=== PATIENT | male | born 1985 | race Caucasian/White ===

== ENCOUNTER 2018-04-06 21:44 | Inpatient (IN) | payer BC, OTHER ==
[~2018-04-06] VITALS: Ht 190.5 cm; Wt 83.9 kg
--- NOTE | 2018-04-06 23:15 | NUR ---
Intake Assessment Pt met in Intake Office at approximately 2015 hours on 04/06/18 to be admitted to [facility] for medically managed withdrawal from ETOH. Pt appears disheveled with uncombed hair, wearing baggy, unwashed clothing, dirty fingernails and dark circles under eyes. Pt stares into space often, and is preoccupied with phone. VS's obtained: T 96.9, BP150/76. HR 99, RR 16, SaO2 94% on RA. Pt reports drinking 750mls of ETOH(Vodka) per day for last 6 weeks, with last drink at 2100 this evening, denies all other substance use. Pt reports height as 75", and weight previously as 195lbs and believes he has gained an additional 25 lbs in past 1.5 months due to drinking. Pt reports anxiety, restlessness/agitation/irritability, hot and cold sweats, panic and night terrors as w/d symptoms experienced in past, no c/o at present. Pt denies any SI/HI, PMH or PPH, Sz Hx, w/d induced delirium or cardiac complications, and no O/D, lists allergy to PCN with adverse effects being swelling of extremities and face. Policies and procedures (rules) of unit explained, Pt verbalizes understanding.
[2018-04-06 23:23] VITALS: BP 150/76
[2018-04-06] MEDS ORDERED: MAGNESIUM HYDROXIDE 30 ML LIQUID UDC PO PRN (23:30)
[2018-04-06] MEDS ORDERED: MAG HYDROX/AL HYDROX/SIMETH 30 ML LIQUID UDC PO PRN (23:30)
[2018-04-06] MEDS ORDERED: THIAMINE HCL 200 MG/2 ML VIAL IM ONE (23:30)
[2018-04-06] MEDS ORDERED: HYDROXYZINE PAMOATE 25 MG CAPSULE PO PRN (23:30)
[2018-04-06] MEDS ORDERED: MIRALAX 17 GM POWD.PACK PO PRN (23:30)
[2018-04-06] MEDS ORDERED: ONDANSETRON ODT 4 MG TAB.RAPDIS SL PRN (23:30)
[2018-04-06] MEDS ORDERED: LOPERAMIDE HCL 2 MG CAPSULE PO PRN ×2 (23:30)
[2018-04-06] MEDS ORDERED: LORAZEPAM 2 MG/1 ML VIAL IM PRN (23:30)
[2018-04-06] MEDS ORDERED: CLONIDINE HCL 0.1 MG TABLET PO PRN (23:30)
[2018-04-06] MEDS ORDERED: ONDANSETRON 4 MG/2 ML VIAL IM PRN (23:30)
[2018-04-06] MEDS ORDERED: DICYCLOMINE HCL 20 MG TABLET PO PRN (23:30)
[2018-04-06] MEDS ORDERED: LORAZEPAM 1 MG TABLET PO PRN ×2 (23:30)
[2018-04-06 23:38] LABS: BASOPHILS % (AUTO) 0.3 % (0.0-2.0); EOSINOPHILS % (AUTO) 0.6 % (0.0-7.0); HEMATOCRIT 45.3 % (36.7-47.1); HEMOGLOBIN 15.6 g/dL (12.5-16.3); LYMPHOCYTES # (AUTO) 1.5 K/uL (20.0-40.0); LYMPHOCYTES % (AUTO) 35.3 % (20.5-51.5); MEAN CORPUSCULAR HGB CONC 34 g/dL (32.5-36.3); MEAN CORPUSCULAR VOLUME 90.1 fL (73.0-96.2); MONOCYTES # (AUTO) 0.3 K/uL (2.0-10.0); MONOCYTES % (AUTO) 6.8 % (0.0-11.0); NEUTROPHILS # (AUTO) 2.4 K/uL (1.8-8.9); PLATELET COUNT (AUTO) 266 K/uL (152-348); RED BLOOD CELL COUNT(AUTO) 5.03 MIL/uL (4.06-5.63); WHITE BLOOD COUNT (AUTO) 4.2 K/uL (3.6-10.2)
[2018-04-07] VITALS: BP 114/73
[2018-04-07 00:37] LABS: BILIRUBIN,TOTAL 0.2 mg/dL (0.2-1.0); CREATININE 0.8 mg/dL (0.6-1.3); MAGNESIUM 1.9 mg/dL (1.8-2.4); POTASSIUM 3.9 mmol/L (3.5-5.1); TOTAL PROTEIN, SERUM 8.7 g/dL (6.4-8.2)
--- NOTE | 2018-04-07 01:00 | NUR ---
Admission Note: Pt received into [facility] on 04/06/18 at 2334 hours for medically managed withdrawal from ETOH. Skin check performed and skin found intact, no contraband noted. Pt shown unit, kitchen, showers, rec room, etc. and admission performed in pt room 314. Pt cooperative, depressed, anxious, denies w/d at present. Pt reports drinking 750mls of ETOH (Vodka) per day for last 6 weeks. Pt claims cycle of drinking for a month and being sober for a month for last 10 years. Last use of ETOH was approximately 2100 hours on 04/06/18 and 750mls consumed for day. Last time sober was February 15, and pt first used ETOH at age 17 around 2002. Pt appears disheveled, with uncombed hair, unshaven, dirty clothing, dark circles under eyes and dirty fingernails. Pt displays poor eye contact, staring into space for periods, worried, and preoccupied. Affect flat with racing thoughts. Pt reports some anxiety, agitation, restlessness, diaphoresis, and fatigue as current symptoms of w/d. Current VS's: BP 114/73, HR 88, RR 16, T 98.2, SaO2 94% on RA. Pt height remains at 6'3", but weight is 185 on scale. Allergies to PCN with adverse reaction being swelling of the extremities and face/neck, diet regular. Pt does not have an advance directive, does not wish one, and is an organ donor. Pt is oriented x 4. Substance Use: ETOH (Vodka) 750mls/day for last 6 weeks, alternating month long periods drinking for last 10 years. Pt reports longest period sober as 8 months, obtained in 2013 after his 1 prior attempt at sobriety at "[facility]" in [place], [place], where he participated in an IOP for 4 weeks. Family hx reveals both parents and only sibling (sister) all experience SA (ETOH). Pt lists his support as his former therapist. 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 When asked why pt drinks, pt responds "I enjoy it, I guess, It keeps me calm". Pt expresses great enjoyment from drinking, but when asked why he wants to get sober, pt states "I'm going to kill myself, I'm going to drink myself to the point where my body shuts down". Openly he recognized his barriers as his enjoyment, stating "I really enjoy it", and wanting to "be the life of the constitution party" and coenablers. Consequences experienced are 2 DUI's, his girlfriend (a nurse) currently kicking him out of the house if he doesn't get help, and gaining weight (Pt believed he had gained 25 lbs in past month and a half-actually has lost 10lbs). When asked how many times they've tried to get sober, pt responds "every single morning I wake up". Pt states the difference for this time is: "I've never had so much on the line" and "I'm going to be 33 in April". Rules of unit explained to pt, pt verbalized understanding , blood and U/A obtained. Full safety measures instituted and explained to pt (i.e. bed locked and in lowest position, siderails up and padded x 2, call naylor within reach and frequent rounding. Will continue to monitor pt for duration of shift, attending promptly to all s/sx's of withdrawal or distress, until morning endorsement.
[2018-04-07 01:32] LABS: THYROID STIMULATING HORMONE 3.035 mIU/mL (0.358-3.740)
--- NOTE | 2018-04-07 01:45 | NUR ---
PRN Med Ativan 1mg PO given for CIWA of 8, aeb fine tremors, diaphoresis, anxiety and agitation, insomnia. Will continue to monitor and reassess in 1 hour
--- NOTE | 2018-04-07 02:45 | NUR ---
PRN Reassessment Ativan 1mg PO given for CIWA of 8 1 hour prior. At present pt is sleeping, RR 14, even and nonlabored. Med effective.
[2018-04-07 04:00] VITALS: BP 107/60
--- NOTE | 2018-04-07 04:00 | NUR ---
0400 Rounds VS's obtained and stable, CIWA deferred r/t pt somnalance. Will continue to monitor and promptly attend to all s/sx's of w/d or distress.
[2018-04-07 04:17] LABS: *AMPHETAMINE, URINE NEGATIVE (NEGATIVE); *BARBITURATE, URINE NEGATIVE (NEGATIVE); *CANNABINOID, URINE NEGATIVE (NEGATIVE); *COCCAINE, URINE NEGATIVE (NEGATIVE); *OPIATE, URINE NEGATIVE (NEGATIVE); *PHENCYCLIDINE SCREEN,URINE NEGATIVE (NEGATIVE)
--- NOTE | 2018-04-07 07:45 | NUR ---
START OF SHIFT Pt is a 32 y/o M admitted yesterday 04/06/18 for medically supervised ETOH withdrawal. Upon entering room, pt is A/Ox4, laying in bed, has good eye contact, has a disheveled appearance. Pt has facial flushing, presents anxiety, restlessness, diaphoresis, fatigue, appears dyshoric, anhedonic, and tremors felt. Last CIWA 8. Encouraged pt to increase fluids as tolerated, educated pt on s/s to report; pt verbalized understanding. Bed is on the lowest position with side rails x2 up and call light within reach. Safety measures in place. Will give endorsement to load dropper nurse.
[2018-04-07 08:00] VITALS: BP 135/71
--- NOTE | 2018-04-07 08:10 | NUR ---
End of Shift Endorsement given to day nurse. Pt admitted to unit on 04/06/18 at 2334 hours for medically managed withdrawal from ETOH (750mls Vodka/day). Pt list as a full code on a regular diet with allergy to PCN. Pt currently on PRN Ativan for w/d symptoms. Pt CIWA score for shift 8, for which Ativan 1mg Po given, and assessed effective. Pt wit flat affect and racing thoughts, disheveled and uncombed hair and dirty fingernails, and at times unable to articulate feelings or identify symptoms. Pt admitted and slept for 6 hours with 1100 intake, and 1 void. Labs and U/A obtained prior to Ativan. Full safety (fall and seizure) precautions in place with padded siderails x 2 and frequent rounding.
--- NOTE | 2018-04-07 08:30 | NUR ---
[facility] ASSESSMENT 10 Received pt A/Ox4, respirations even and unlabored, laying in bed watching tv. Pt has good eye contact, has a disheveled appearance, depressive mood, hypoactive. Pt has facial flushing, presents anxiety, restlessness, diaphoresis, fatigue. Pt is dysphoric, anhedonic, and tremors are felt. Pt reports he is starting to have hot flashes. Refused prn meds at this time. Educated pt to use deep breathing exercises to promote relaxation. Will continue to monitor.
[2018-04-07] MEDS ORDERED: TUBERCULIN,PURIF.PROT.DERIV. 5 TU/0.1 ML TEST ID ONE (09:00)
[2018-04-07] MEDS: FOLIC ACID 1 MG TABLET PO SCH (09:08)
[2018-04-07] MEDS: MULTIVITAMINS,THERAPEUTIC TABLET PO SCH (09:08)
[2018-04-07] MEDS: THIAMINE HCL 100 MG TABLET PO SCH (09:09)
[2018-04-07 12:00] VITALS: BP 130/72
--- NOTE | 2018-04-07 12:00 | NUR ---
[facility] ASSESSMENT 13 Pt has been isolative in room, watching tv, reports being restless, fidgety. Pt has facial flushing, headache, presents increased anxiety and agitation, restlessness, diaphoresis, fatigue. Pt is dysphoric, anhedonic, and tremors are felt. Pt reports he is starting to have hot flashes. has ordered a 5 day ativan taper to start 1330. Will administer tylenol prn. Encouraged pt to attend groups and activities to promote coping skills and to use a diversion. Will continue to monitor.
[2018-04-07] MEDS ORDERED: 5 DAY TAPER OF LORAZEPAM -SERENITY PROTOCOL PO PRN (13:00)
[2018-04-07] MEDS: ACETAMINOPHEN 325 MG TABLET PO PRN (13:27)
--- NOTE | 2018-04-07 13:27 | NUR ---
PRN Tylenol 650 mg po, Maalox 30mg po prn given for indigestion, heartburn, headache. Will monitor and reassess.
[2018-04-07] MEDS: LORAZEPAM 1 MG TABLET PO SCH ×3 (13:56→20:36)
--- NOTE | 2018-04-07 14:27 | NUR ---
REASSESSMENT Pt reported med as effective for headache; pt is resting in room watching tv. Will continue to monitor and reassess. Addendum: 04/07/18 at 1428 by DEBBIE KAMINSKI RN Pt report Maalox as effective for indigestion, heartburn.
--- NOTE | 2018-04-07 16:00 | NUR ---
CIWA ASSESSMENT 15 Pt has increased restlessness, c/o heartburn, stomach indigestion, facial flushing, hot flashes, headache, presents increased anxiety and agitation, diaphoresis, fatigue, dysphoric, anhedonic, and tremors are felt. Ativan scheduled med to be given. Tylenol and maalox prn was given. Encouraged pt to use non-pharmalogical method. Will continue to monitor.
[2018-04-07 16:30] VITALS: BP 122/82
--- NOTE | 2018-04-07 18:57 | NUR ---
END OF SHIFT A 5 day Ativan taper has been ordered for pt that started today @1330. Pt asks questions regarding plan of care, med regimen, is involved in his care and is compliant. Pt has been given maalox and tylenol prns during shift and was effective. Last CIWA 15 @1600. Pt ate 75% of meals. Fluid intake of 1500 ml, voided x4, bm x1. Safety measures in place. Will give endorsement to maintenance supervisor 2nd shift nurse.
--- NOTE | 2018-04-07 19:30 | NUR ---
Start of Shift Endorsement given to day nurse. Pt admitted to unit on 04/06/18 at 2334 hours for medically managed withdrawal from ETOH (750mls Vodka/day). Pt list as a full code on a regular diet with allergy to PCN. 5 day Ativan taper started 04/07/18 on day shift. Pt appears depressed and sad, affect is flat with poor eye contact and racing thoughts. Pt remains disheveled with uncombed hair, unshaven and unwashed clothing and dirty fingernails. Oriented x 4. Pt reports "micro naps" during day, w/d s/sx's 11/16 at present . Will continue to monitor for shift, endorsing in am, and attending to all s/sx's w/d or distress promptly.
[2018-04-07 20:00] VITALS: BP 142/89
--- NOTE | 2018-04-07 20:00 | NUR ---
1999 Rounds VS's obtained, stable. CIWA 15, AEB hot and cold sweats, hand tremors, anxiety and agitation, insomnia, SBP (142), anhedonia, depression, difficulty concentrating, and fatigue/malaise.
[2018-04-07] MEDS: diphenhydrAMINE 50 MG CAPSULE PO PRN (20:35)
--- NOTE | 2018-04-07 20:35 | NUR ---
PRN Meds Benedryl 50mg PO for insomnia and Clonidine 0.1mg PO for anxiety, diaphoresis given. Will continue to monitor and reassess in 1 hour
--- NOTE | 2018-04-07 21:35 | NUR ---
PRN Reassessment Benedryl 50mg PO for insomnia and Clonidine 0.1mg PO for anxiety, diaphoresis given 1 hour prior. At present pt is sleeping, RR 14, even and nonlabored. Meds effective.
[2018-04-08] VITALS: BP 117/73
--- NOTE | 2018-04-08 | NUR ---
Midnight Rounds VS's obtained, stable. CIWA deferred r/t pt somnalance. Will continue to monitor, promptly attending to all s/sx's w/d or distress.
[2018-04-08 04:00] VITALS: BP 114/68
--- NOTE | 2018-04-08 04:00 | NUR ---
0400 Rounds VS's obtained and stable. CIWA deferred r/t pt somnalance. Will continue to monitor, promptly attending to all s/sx's w/d or distress.
[2018-04-08 04:05] LABS: HEPATITIS B SURFACE AG Negative (Negative)
--- NOTE | 2018-04-08 07:31 | NUR ---
End of Shift Endorsement given to day nurse. Pt admitted to unit on 04/06/18 for medically managed withdrawal from ETOH (750mls Vodka/day). Pt listed as a full code on a regular diet with allergy to PCN. 5 day Ativan taper started 04/07/18. Pt depressed/worried over outside issues (i.e. work, home, girlfriend) with flat affect, poor eye contact, sometimes staring into space with racing, loose thoughts. W/d s/sx's experienced include tremors, anxiety and restlessness, diaphoresis, depression, difficulty concentrating, dyspepsia, fatigue, H/A, and increased startle response. Last CIWA was 15 with pt sleeping 9 hours, intake was 1296 mls, with 6 voids and 1 BM. There were no PRN's.
--- NOTE | 2018-04-08 07:45 | NUR ---
START OF SHIFT Pt is a 32 y/o M admitted on 04/06/18 for medically supervised ETOH withdrawal. Pt has been placed on a 5 day Ativan taper, today is the second day. Pt is tolerating well. Upon entering room, pt is A/Ox4, appears flushed, sitting in bed w/ HOB elevated watching tv, has a disheveled appearance and a depressive mood. Pt has a headache, nausea, anxiety, restlessness, diaphoresis, hot flashes, fatigue, dyshoric, anhedonic, and tremors noted. Pt reports feeling very restless. Last CIWA 15. Encouraged pt to increase fluids as tolerated, educated pt on today's plan of care, med regimen, and s/s to report; pt verbalized understanding. Bed is on the lowest position with side rails x2 up and call light within reach. Safety measures in place. Will give endorsement to shift supervisor film processing nurse.
[2018-04-08 08:00] VITALS: BP 119/72
--- NOTE | 2018-04-08 08:00 | NUR ---
[facility] Received pt A/Ox4, appears flushed upon assessment, sitting in bed w/HOB elevated watching tv, has a disheveled appearance and a depressive mood. Pt reports feeling very restless, contantly wanting to get up and go do something. Pt C/O headache, nausea, anxiety, restlessness, diaphoresis, hot flashes, fatigue, dyshoria, anhedonia, and tremors noted. Scheduled taper meds to be given and tylenol prn will be given. Addendum: 04/08/18 at 1018 by DEBBIE KAMINSKI RN [facility]
[2018-04-08] MEDS: LORAZEPAM 1 MG TABLET PO SCH ×3 (08:58→21:33)
[2018-04-08] MEDS: FOLIC ACID 1 MG TABLET PO SCH (08:58)
[2018-04-08] MEDS: MULTIVITAMINS,THERAPEUTIC TABLET PO SCH (08:58)
[2018-04-08] MEDS: THIAMINE HCL 100 MG TABLET PO SCH (08:58)
[2018-04-08] MEDS: ACETAMINOPHEN 325 MG TABLET PO PRN (09:06)
--- NOTE | 2018-04-08 09:06 | NUR ---
PRN Tylenol 650 mg po PRN given for headache 5/10 pain. Will monitor and reassess.
--- NOTE | 2018-04-08 10:06 | NUR ---
REASSESSMENT Pt reports tylenol has been effective in decreasing the intensity of his headache to 3/10. Will continue to monitor.
--- NOTE | 2018-04-08 10:40 | NUR ---
Client prompted to attend groups twice daily and to let therapist know if he needs to talk.
[2018-04-08 12:20] VITALS: BP 146/88
--- NOTE | 2018-04-08 12:30 | NUR ---
[facility] ASSESSMENT 16 Pt appears flushes, anxious, agitated, has poor eye contact, just came out of group. Pt C/O nausea, anxiety, restlessness, diaphoresis, intermittent hot flashes, fatigue, headache, dyshoria, anhedonia, and tremors noted. Scheduled taper meds to be given and refuses PRN meds at this time.
[2018-04-08 16:00] VITALS: BP 129/89
--- NOTE | 2018-04-08 17:14 | NUR ---
CIWA ASSESSMENT 16 Pt presents flushing, agitation, restlessness, frequent movements, diaphoresis, headache, sensitivity to the light, dyshoria, anhedonia, and tremors noted. Refuses PRN meds at this time. Addendum: 04/08/18 at 1717 by DEBBIE KAMINSKI RN Correct CIWA 11. Addendum: 04/08/18 at 1718 by DEBBIE KAMINSKI RN Correct CIWA assessment is 14.
--- NOTE | 2018-04-08 18:33 | NUR ---
END OF SHIFT Pt continues on a 5 day ativan taper; today the second day, tolerating well. Pt tend to deny most symptoms however pt appears anxious and agitated, has less eye contact than yesterday, restless, has facial flushing and tremors, c/o headache and light sensitivity. Pt has been seeking activities throughout the day to occupy his time. Last CIWA 14. Pt has been given tylenol PRN in the am. Safety measures in place.
--- NOTE | 2018-04-08 19:15 | NUR ---
Start of Shift Note: Patient is a 32 y.o male admitted on 04/06/18 for medically supervised withdrawal from ETOH use. Patient is alert & oriented x4. He presented with a flushed face, worried affect and anxious and depressed mood. He also presented with symptoms of withdrawals such as, fine tremors, sweating and mild headache. Patient continues on his Ativan taper and tolerating well. last CIWA is 14. Pt received PRN Tylenold during day shift and was effective per report. Continue to encourage pt to increase fluid intake for hydration. Pt educated of current plan of care for the night and medication regimen. Pt verbalized understanding. Safety measures in place. Will continue to monitor patient.
[2018-04-08 20:00] VITALS: BP 129/89
[2018-04-08] MEDS: IBUPROFEN 600 MG TABLET PO PRN (21:33)
--- NOTE | 2018-04-08 21:33 | NUR ---
PRN Motrin Patient appears restless and complains of mild headache. Non-pharmacological intervention provided but not effective. PRN Motrin administered as ordered. Safety measures in place. Will monitor for effectiveness of medication.
--- NOTE | 2018-04-08 22:33 | NUR ---
PRN Reassessment Patient verbalized relief from headache after medication administration. Pt in bed and appears comfortable. Safety measures in place. Will continue to monitor patient.
[2018-04-08] MEDS: diphenhydrAMINE 50 MG CAPSULE PO PRN (22:42)
--- NOTE | 2018-04-08 22:42 | NUR ---
PRN Benadryl Patient complains of unable to fall asleep. PRN Benadryl adminstered as ordered. Will monitor for effectiveness of medication.
--- NOTE | 2018-04-08 23:42 | NUR ---
PRN Reassessment Patient asleep in bed and appears comfortable. No facial grimacing noted. Respiration even & unlabored. Safety measures in place. Will continue to monitor patient.
--- NOTE | 2018-04-09 04:00 | NUR ---
Vitals/CIWA deferred Patient asleep in bed and appears comfortable. No facial grimacing noted. Respiration even & unlabored. Unable to assess CIWA at this time and will reassess pt if awake. Safety measures in place. will continue to monitor patient.
--- NOTE | 2018-04-09 07:29 | NUR ---
End of Shift Note: Continue to closely monitor patient. Patient remains alert & oriented x4. He presented with fine tremors, sweating, headache, anxiety & agitation. He continues to received his Ativan taper and tolerating well. Last CIWA is 12. He received PRN Motrin for headache and Benadryl for sleep and were effective. Pt remained stable and vitals noted WNL. Pt was able to sleep for a total of 6 hours. He Voided 2x with no bowel movement. All need were attended & met. Safety measures in place. Will discuss all pertinent information to incoming nurse.
--- NOTE | 2018-04-09 07:45 | NUR ---
START OF SHIFT Pt is a 32 y/o M admitted on 04/06/18 for medically supervised ETOH withdrawal. Today will be the third day of a 5 day Ativan taper and pt is tolerating well. Received pt is A/Ox4, sitting in bed w/ HOB elevated watching tv, has a disheveled appearance, has a anxious and depressive mood. Pt C/O headache, sweating, sensitivity to the light, pt presents flushing, anxiety, agitation, restlessness, hot flashes, fatigue, dysphoric, anhedonic, and tremors noted. Last CIWA 12 @1999. Encouraged pt to increase fluids as tolerated, educated pt on today's plan of care, med regimen, and s/s to report; pt verbalized understanding. Bed is on the lowest position with side rails x2 up and call light within reach. Safety measures in place. Will continue to monitor.
--- NOTE | 2018-04-09 08:00 | NUR ---
[facility] ASSESSMENT 14 Received pt is A/Ox4, sitting in bed w/ HOB elevated watching tv with a flat affect, has a disheveled appearance, and an anxious and depressive mood. Pt C/O headache, sweating, sensitivity to the light, pt presents flushing, anxiety, agitation, restlessness, hot flashes, fatigue, dysphoric, anhedonic, and tremors noted. scheduled meds and tylenol prn to be given.
[2018-04-09 08:01] VITALS: BP 128/85
[2018-04-09] MEDS: FOLIC ACID 1 MG TABLET PO SCH (09:03)
[2018-04-09] MEDS: MULTIVITAMINS,THERAPEUTIC TABLET PO SCH (09:03)
[2018-04-09] MEDS: LORAZEPAM 1 MG TABLET PO SCH ×4 (09:03→21:00)
[2018-04-09] MEDS: THIAMINE HCL 100 MG TABLET PO SCH (09:03)
[2018-04-09] MEDS: ACETAMINOPHEN 325 MG TABLET PO PRN ×2 (09:03→18:01)
--- NOTE | 2018-04-09 09:03 | NUR ---
PRN Tylenol 650 mg po prn given for headache 5/10 pain. WIll monitor and reassess.
--- NOTE | 2018-04-09 10:03 | NUR ---
REASSESSMENT Pt reports tylenol as partially effective; however decreased the intensity of headache and is now tolerable. Will continue to monitor.
[2018-04-09 12:00] VITALS: BP 148/88
--- NOTE | 2018-04-09 12:00 | NUR ---
[facility] ASSESSMENT 17 Pt has increased anxiety, agitation, restlessness, dysphoria, anhedon continues to have facial flushing, flat affect, a disheveled appearance, and an anxious and depressive mood. Pt C/O headache /10, sweating, sensitivity to the light, dysphoric, anhedonic, and tremors noted. Scheduled Ativan, Vistaril, and Ibuprofen prns to be given. Pt states he wants to take a long nap after meds.
--- NOTE | 2018-04-09 13:23 | NUR ---
Client was prompted to attend twice daily group therapy sessions.
[2018-04-09] MEDS: IBUPROFEN 600 MG TABLET PO PRN (13:32)
--- NOTE | 2018-04-09 13:32 | NUR ---
PRN Ibuprofen 600 mg and vistaril 25 mg po prn given for anxiety and headache. Will monitor and reassess.
--- NOTE | 2018-04-09 14:32 | NUR ---
REASSESSMENT Pt reports that he still has a headache and is slightly decreased from before. Pt is less anxious. WIll continue to monitor.
--- NOTE | 2018-04-09 16:10 | NUR ---
CIWA ASSESSMENT 15 Pt continues to have facial flushing, flat affect, a disheveled appearance, and an anxious and depressive mood, anxiety, agitation, restlessness, dysphoria, anhedonia and tremors. Pt C/O headache 03/18, sweating, sensitivity to the light. Scheduled Ativan to be given.
[2018-04-09 16:30] VITALS: BP 130/88
--- NOTE | 2018-04-09 18:01 | NUR ---
PRN Tylenol 650 mg po prn given for headache 7/10 pain. Will monitor and reassess.
--- NOTE | 2018-04-09 19:20 | NUR ---
END OF SHIFT Pt has been attending and participating in groups. Pt continues to having flushing, headaches, restlessness, anxiety, agitation. Pt has been given tylenol x2, ibuprofen, vistaril PRNs. Pt states tried to take a nap and could not go to sleep. Pt is worried he will have a hard time falling asleep tonight. Last CIWA 15 @1600. Safety measures in place.
--- NOTE | 2018-04-09 19:21 | NUR ---
Start of shift note Received report from day shift nurse. Pt is a 32 yo male, A+Ox4, presenting to [facility] for ETOH. Pt noted with fatigue, agitation, and anxiety. Pt has no medical HX to report. Pt is on 5 day Ativan taper, tolerated well. Respirations even and unlabored. Will continue to monitor.
[2018-04-09 20:45] VITALS: BP 119/82
--- NOTE | 2018-04-09 20:45 | NUR ---
CIWA Assessment CIWA: 12. Pt noted with fine tremors, sweat, anxiety, agitation, and mild headache. Respirations even and unlabored. Will continue to monitor.
--- NOTE | 2018-04-09 21:59 | NUR ---
Ativan Dose Held 2100 dose of Ativan 1mg held for sleep. Respirations even and unlabored. Will continue to monitor.
--- NOTE | 2018-04-10 00:57 | NUR ---
V/S refused and CIWA deferred for sleep. Respirations even and unlabored. Will continue to monitor.
--- NOTE | 2018-04-10 04:32 | NUR ---
V/S refused and CIWA deferred for sleep. Respirations even and unlabored. Will continue to monitor.
--- NOTE | 2018-04-10 07:00 | NUR ---
End of shift note Pt was continuously noted with fatigue, agitation, and anxiety. Pt remained in room for entire shift. Pt remained cooperative and compliant with all aspects of treatment. Pt was not given any PRN medications during shift. Pts 2100 medications were held for sleep. Pt is on 5 day Ativan taper, tolerated well. Pt slept for a total of 11 HRS. Last CIWA: 12 @2000. Respirations even and unlabored. Will endorse to day shift nurse.
--- NOTE | 2018-04-10 07:10 | NUR ---
Start of Shift Pt. is a 32 y/o male admitted for the medically managed withdrawal from ETOH. Pt. was placed on a 5 day Ativan taper to manage withdrawal symptoms. Endorse from previous shift pt. presented with fatigue, agitation, and anxiety. No PRNs given during previous shift. Endorse pt. is cooperative with treatment but is isolative. Received pt. in room. Pt. is in bed with eyes closed, no signs of SOB or acute distress noted. Pt.s room is cluttered with personal belongings and food containers. Last CIWA 12 at 1999. Safety measures in place will continue to monitor pt.s behavior for safety.
[2018-04-10 08:00] VITALS: BP 126/77
--- NOTE | 2018-04-10 08:00 | NUR ---
CIWA Assessment CIWA 10. Pt. presents with fine tremors, diaphoresis, anxiety, and restlessness. Respirations even and unlabored. Will continue to monitor pt. for safety.
[2018-04-10] MEDS: THIAMINE HCL 100 MG TABLET PO SCH (08:39)
[2018-04-10] MEDS: MULTIVITAMINS,THERAPEUTIC TABLET PO SCH (08:39)
[2018-04-10] MEDS: FOLIC ACID 1 MG TABLET PO SCH (08:39)
[2018-04-10] MEDS: LORAZEPAM 1 MG TABLET PO SCH ×3 (08:39→21:00)
--- NOTE | 2018-04-10 12:00 | NUR ---
CIWA Assessment CIWA 10. Pt. presents with fine tremors, diaphoresis, anxiety, and restlessness. Pt. in room watching television. Will administer medication regiment as ordered. Will continue to monitor pt. behavior for safety.
[2018-04-10 12:12] VITALS: BP 136/78
[2018-04-10] MEDS: ACETAMINOPHEN 325 MG TABLET PO PRN (14:25)
--- NOTE | 2018-04-10 14:25 | NUR ---
PRN Medications Pt. in room watching television. Pt. states he has a headache 11/16. Gave pt. PRN Tylenol at this time. Will continue to monitor pt.'s behavior for medication effectiveness and safety.
--- NOTE | 2018-04-10 15:25 | NUR ---
PRN Re-Assessment Pt. reports 0/10 pain. Medication effective. Will continue to monitor pt.'s behavior for safety.
[2018-04-10 16:00] VITALS: BP 136/86
--- NOTE | 2018-04-10 16:00 | NUR ---
CIWA Assessment CIWA 10. Pt. presents with fine tremors, headache, anxiety, and restlessness. Pt. in room watching television. Pt. compliant with medication regiment. Will continue to monitor pt.'s behavior for safety.
--- NOTE | 2018-04-10 19:10 | NUR ---
End of Shift Pt. is a 32 y/o male admitted for the medically managed withdrawal from ETOH. Pt. was placed on a 5 day Ativan taper to manage withdrawal symptoms. Pt. continuously presented with fatigue, agitation, headache and anxiety throughout shift. PRN Tylenol given for mild headache. Pt. remained cooperative with treatment and medication regiment. Last CIWA 10 at 1600. Safety measures in place. Will endorse pt.s care to oncoming shift.
--- NOTE | 2018-04-10 19:12 | NUR ---
Start of shift note Received report from day shift nurse. Pt is a 32 yo male, A+Ox4, presenting to [facility] for ETOH withdrawal. Pt noted to be anxious, agitated, sweaty, having mild headache, and having fine tremors. Pt has has no past medical HX to report. Pt is on 5 day Ativan taper, tolerated well. Respirations even and unlabored. Will continue to monitor.
[2018-04-10 20:22] VITALS: BP 121/85
--- NOTE | 2018-04-10 20:22 | NUR ---
CIWA Assessment CIWA: 9. Pt noted with fine tremors, sweat on forehead, anxiety, agitation, and mild headache. Respirations even and unlabored. Will continue to monitor.
[2018-04-11] MEDS: diphenhydrAMINE 50 MG CAPSULE PO PRN ×2 (00:01→23:38)
[2018-04-11 00:03] VITALS: BP 110/68
--- NOTE | 2018-04-11 00:03 | NUR ---
CIWA Assessment CIWA: 8. Pt noted with fine tremors, anxiety, agitation, and mild headache. Respirations even and unlabored. Will continue to monitor.
[2018-04-11] MEDS: ACETAMINOPHEN 325 MG TABLET PO PRN ×2 (00:07→23:38)
--- NOTE | 2018-04-11 00:07 | NUR ---
PRN Benadryl and Tylenol Pt c/o headache 2/10 and inability to sleep and requested for PRN Tylenol and Benadryl. Medications given and tolerated well. Will reassess within 1 HR. Will continue to monitor.
--- NOTE | 2018-04-11 01:05 | NUR ---
PRN Benadryl and Tylenol Reassessment Medications effective. Pt expresses reduction of headache to 1/10 and is resting well in bed. No s/s of ASE noted at this time. Respirations even and unlabored. Will continue to monitor.
--- NOTE | 2018-04-11 04:46 | NUR ---
V/S refused and CIWA deferred for sleep. Respirations even and unlabored. Will continue to monitor.
--- NOTE | 2018-04-11 06:59 | NUR ---
End of shift note Pt was continuously noted with anxiety, agitation, and restlessness. Pt remained in room for majority of shift except to get food from kitchen, to go smoke on smoking patio, and to interact with other patients in recreational room. Pt remained compliant and cooperative with all aspects of treatment. Pt was given PRN Benadryl and Tylenol @0007. Pt is on 5 day Ativan taper, tolerated well. Pt slept for a total of 5 HRS. Last CIWA: 8 @0000. Respirations even and unlabored. Will endorse to day shift nurse.
--- NOTE | 2018-04-11 07:33 | NUR ---
BEGINNING OF SHIFT Patient continues under close observation. Patient endorsement report received from shift foreman nurse, all pertinent information was discussed. Patient with admitting Dx: etoh withdrawal. Patient with ongoing 5 day Ativan taper as ordered, scheduled for day 5 of taper. Received patient in room with eyes closed, respirations are even and unlabored. Patient continues under close observation. Patient received PRN: Tylenol, and Benadryl as per shift foreman medications effective. patient slept for 5 hours, per shift foreman nurse. Patient with last CIWA score of: 8. Patient received awake, alert and oriented x4, educated regarding plan of care for the day and medication regimen. safety measures are in place. call light with in reach. will continue to monitor closely.
[2018-04-11 08:41] VITALS: BP 118/80
[2018-04-11] MEDS: MULTIVITAMINS,THERAPEUTIC TABLET PO SCH (08:42)
[2018-04-11] MEDS: FOLIC ACID 1 MG TABLET PO SCH (08:42)
[2018-04-11] MEDS: THIAMINE HCL 100 MG TABLET PO SCH (08:42)
[2018-04-11] MEDS ORDERED: LORAZEPAM 1 MG TABLET PO SCH (09:00)
--- NOTE | 2018-04-11 09:00 | NUR ---
CIWA ASSESSMENT Patient continues under close observation. Patient exhibiting the following s/sx of withdrawal: anxiety, restlessness, difficulty concentrating, and generalized discomfort, CIWA score of: 7. Patient with ongoing Ativan taper as ordered, medications administered as ordered, will continue to monitor.
--- NOTE | 2018-04-11 13:00 | NUR ---
CIWA ASSESSMENT continues exhibiting the following s/sx of withdrawal: anxiety, restlessness, difficulty concentrating, and generalized discomfort, CIWA score of: 7. safety measures in place, will continue to monitor.
[2018-04-11 13:22] VITALS: BP 121/84
[2018-04-11 16:49] VITALS: BP 120/81
--- NOTE | 2018-04-11 16:50 | NUR ---
CIWA ASSESSMENT Presents with: anxiety, restlessness, difficulty concentrating, and generalized discomfort, CIWA score of: 5. safety measures in place, will continue to monitor.
--- NOTE | 2018-04-11 19:03 | NUR ---
END OF SHIFT Monitored patient closely during shift. Patient alert and oriented x4, compliant with therapeutic plan of care. Patient noted with anxious/depressed mood. Has flat and labile affect. Patient Encouraged to develop coping skills and utilization of non pharmacological interventions. Monitored closely during shift. Patient presented exhibiting the following s/sx: tremors that can be felt, and anxiety and agitation with last CIWA score of: 7. Taper adjusted and patient is scheduled to be discharged tomorrow, noted self motivated towards sobriety. Patient encouraged to attend group therapies/sessions to learn new coping skills to prevent relapse, noted attending and participating denies SI/HI. Participated in Yoga during shift. Encouraged increase PO fluid intake as tolerated. Patients safety measures are in place. Patient endorsed to night court magistrate nurse, all pertinent information discussed.
--- NOTE | 2018-04-11 19:12 | NUR ---
Start of shift note Received report from day shift nurse. Pt is a 32 yo male, A+Ox4, presenting to [facility] for ETOH withdrawal. Pt noted with restlessness, anxiety, and agitation. Pt has no past medical HX to report. Pt has completed 5 day Ativan taper, tolerated well, and is due for discharge tomorrow. Respirations even and unlabored. Will continue to monitor.
[2018-04-11 20:15] VITALS: BP 113/80
[2018-04-11] MEDS ORDERED: HYDR-3895 PO (21:00)
[2018-04-11] MEDS ORDERED: DIPH50CA37 PO (21:00)
--- NOTE | 2018-04-11 23:38 | NUR ---
PRN Tylenol and Benadryl Pt c/o inability to sleep and headache 10/19 and requested for PRN Benadryl and Tylenol. Medications given and tolerated well. Will reassess within 1 HR. Will continue to monitor.
[2018-04-12 00:28] VITALS: BP 133/80
--- NOTE | 2018-04-12 00:28 | NUR ---
CIWA Assessment CIWA: 5. Pt noted with sweat on forehead, anxiety, and agitation. Respirations even and unlabored. Will continue to monitor.
--- NOTE | 2018-04-12 00:30 | NUR ---
PRN Benadryl and Tylenol Reassessment Medications effective. Pt expresses reduction of headache to 0/10. Pt is resting well in bed. No s/s of ASE noted at this time. Respirations even and unlabored. Will continue to monitor.
--- NOTE | 2018-04-12 04:52 | NUR ---
V/S refused and CIWA deferred for sleep. Respirations even and unlabored. Will continue to monitor.
--- NOTE | 2018-04-12 06:59 | NUR ---
End of shift note Pt was continuously noted with restlessness, agitation, and anxiety. Pt remained in room for majority of shift except to go smoke on smoking patio, to get food from kitchen, and to interact with other patients in recreational room. Pt remained cooperative and compliant with all aspects of treatment. Pt was given PRN Benadryl and Tylenol @2338. Pt has completed 5 day Ativan taper, tolerated well, and is due for discharge today. Pt slept for a total of 6 HRS. Last CIWA: 5 @0000. Respirations even and unlabored. Will endorse to day shift nurse.
--- NOTE | 2018-04-12 07:30 | NUR ---
Start Of Shift: Patient is a 32 yr old male who was admitted to [facility] on 04/06/18 for a medically supervised withdrawal from alcohol, he has completed a 5 day Ativan taper and is to be discharged this am. PRN medications given on PM shift : Benadryl and Tylenol, he slept for 6 hours and last CIWA was 5 @ midnight. Continue to follow MD plan for discharge and offer support as needed.
[2018-04-12 08:00] VITALS: BP 114/68
--- NOTE | 2018-04-12 09:00 | NUR ---
[facility] 8 Patient complains of headache 5/10, Motrin 600MG PO and Tylenol 650 MG PO given. Patient is restless and anxious, he declined any other PRN medication.
[2018-04-12] MEDS: MULTIVITAMINS,THERAPEUTIC TABLET PO SCH (09:04)
[2018-04-12] MEDS: FOLIC ACID 1 MG TABLET PO SCH (09:04)
[2018-04-12] MEDS: THIAMINE HCL 100 MG TABLET PO SCH (09:04)
[2018-04-12] MEDS: ACETAMINOPHEN 325 MG TABLET PO PRN (09:07)
--- NOTE | 2018-04-12 09:07 | NUR ---
PRN Motrin/Tylenol Motrin 600 MG PO and Tylenol 650 MG Po given for headache 5/10 will monitor and reassess
--- NOTE | 2018-04-12 10:07 | NUR ---
PRN Reassess Motrin 600mg PO and Tylenol 650 MG PO effective for headache, pain now 09/18
--- NOTE | 2018-04-12 10:30 | NUR ---
Discharge Note: All Dc paperwork signed and dated, all personal belongings and prescriptions placed in zip tied belongings bag. VS 114/68, HR 72, O2 99%, T 97.9, last CIWA 8 @ 0900. Patient states no SI/HI. Patient ambulated off the unit and was picked up by private car " [facility] " for transport to " [facility] ".
== END 2018-04-12 10:45 | disposition other institution (70) | DRG 895 ==
LOC: SRC 22:04
PROVIDERS: ADMIT Family Medicine Addiction Medicine; ATTEND Family Medicine Addiction Medicine
PROC: HZ2ZZZZ Detoxification Services for Substance Abuse Treatment (ICD-10-PCS; principal; 2018-04-06)
PROC: HZ41ZZZ Group Counseling for Substance Abuse Treatment, Behavioral (ICD-10-PCS; 2018-04-08)
DX: F10.230 Alcohol dependence with withdrawal, uncomplicated (principal); Y90.8 Blood alcohol level of 240 mg/100 ml or more; Z81.8 Family history of other mental and behavioral disorders; F12.10 Cannabis abuse, uncomplicated; Z81.1 Family history of alcohol abuse and dependence; F41.9 Anxiety disorder, unspecified
CPT/HCPCS: 36415; 70030-TC; 80307; 83690; 83735; 84443; 85025; 86580; 86592; 86705; 86803; 87340; 87806; A4663; G0480; J3411; Q0163